=== PATIENT | male | born 2000 | race African-American/Black ===

== ENCOUNTER 2024-12-02 18:31 | Emergency (ER) | payer SELFPAY ==
[~2024-12-02] VITALS: Ht 177.8 cm; Wt 79.5 kg
[2024-12-02 21:33] LABS: APPEARANCE,URINE HAZY (CLEAR); BILIRUBIN,URINE NEGATIVE (NEGATIVE); COLOR,URINE LIGHT YELLOW (YELLOW); GLUCOSE, URINE (UA) NEGATIVE (NEGATIVE); KETONES,URINE NEGATIVE (NEGATIVE); LEUKOCYTE ESTERASE ,URINE NEGATIVE (NEGATIVE); NITRATE,URINE NEGATIVE (NEGATIVE); OCCULT BLOOD,URINE NEGATIVE (NEGATIVE); PROTEIN,URINE NEGATIVE (NEGATIVE); SPECIFIC GRAVITIY, URINE 1.013 (1.003-1.030); UROBILINOGEN,URINE <=1.0 mg/dL (<=1.0)
[2024-12-02 21:57] LABS: BACTERIA,URINE Rare /HPF (None Seen); RBC,URINE None Seen /HPF (0-2); WBC,URINE 0-2 /HPF (0-5)
[2024-12-02 23:21] VITALS: BP 132/79; PULSE 78; RESP 18; TEMP 97.3; O2SAT 99
== END 2024-12-02 23:52 | disposition home or self-care (01) ==
LOC: EMS 18:31
DX: Z11.3 Encounter for screening for infections with a predominantly sexual mode of transmission (principal); F12.90 Cannabis use, unspecified, uncomplicated; F17.210 Nicotine dependence, cigarettes, uncomplicated
CPT/HCPCS: 81001; 99283